=== PATIENT | male | born 1980 | race Caucasian/White ===

== ENCOUNTER 2016-07-06 20:14 | Emergency (ER) | payer BC ==
[~2016-07-06] VITALS: Ht 172.7 cm; Wt 83.0 kg
[2016-07-06 21:30] VITALS: BP 135/84
--- NOTE | 2016-07-07 01:09 | NUR ---
TO ER OF2
--- NOTE | 2016-07-07 01:12 | NUR ---
EPatient being evaluated by physician.
[2016-07-07 01:28] VITALS: BP 135/84
--- NOTE | 2016-07-07 01:28 | NUR ---
Patient discharged with v/s stable. Written and verbal after care instructions given and explained. Patient alert, oriented and verbalized understanding of instructions. Ambulatory with steady gait. All questions addressed prior to discharge. ID band removed. Patient advised to follow up with PMD. Rx of VOLTAERN OPHTHALMIC SOLUTION given. Patient educated on indication of medication including possible reaction and side effects. Opportunity to ask questions provided and answered.
== END 2016-07-07 01:28 | disposition home or self-care (01) ==
LOC: MED 20:14
DX: H15.001 Unspecified scleritis, right eye (principal); R03.0 Elevated blood-pressure reading, without diagnosis of hypertension; Z88.0 Allergy status to penicillin